=== PATIENT | male | born 1990 | race Caucasian/White ===

== ENCOUNTER 2020-06-29 09:51 | Emergency (ER) | payer BC ==
[~2020-06-29] VITALS: Ht 175.3 cm; Wt 65.8 kg
[2020-06-29 09:54] VITALS: BP 129/70
[2020-06-29] MEDS ORDERED: KETOROLAC 60 MG/2 ML VIAL IM ONE (10:05)
[2020-06-29] MEDS ORDERED: LORazepam 1 MG TAB PO ONE (10:15)
--- NOTE | 2020-06-29 10:20 | NUR ---
PT REFUSED MEDICATION BECAUSE HE DOES NOT LIKE NEEDLES, ERMD MADE AWARE
--- NOTE | 2020-06-29 10:20 | NUR ---
30 YEAR OLD MALE COMPLAINS OF SPASMS PAIN IN LOWER BACK THAT RADIATES TO LEFT LEG AFTER INJURY OCCURED 13 YEARS AGO. PT STATES CHRONIC PAIN BUT WORSE FOR THE PAST 3 DAYS WHERE HE NOW HAS DIFFICULTY WITH DAILY ACTIVITIES DUE TO PAIN. PT AOX4, BREATHING EVEN AND UNLABORED, SKIN WARM AND DRY. BED IN LOWEST POSITION, LOCKED, BED RAIL UPX1. PMH - SPINAL INJURY ALLERGIES - NKA
[2020-06-29] MEDS ORDERED: IBUPROFEN 800 MG TAB PO ONE (10:25)
--- NOTE | 2020-06-29 10:40 | NUR ---
Note [email or web address] in EDM - 06/29/20 at 1040 by [email or web address] 30 YEAR OLD MALE COMPLAINS OF SPASMS PAIN IN LOWER BACK THAT RADIATES TO LEFT LEG AFTER INJURY OCCURED 13 YEARS AGO. PT STATES CHRONIC PAIN BUT WORSE FOR THE PAST 3 DAYS WHERE HE NOW HAS DIFFICULTY WITH DAILY ACTIVITIES DUE TO PAIN. PT AOX4, BREATHING EVEN AND UNLABORED, SKIN WARM AND DRY. BED IN LOWEST POSITION, LOCKED, BED RAIL UPX1. PMH - SPINAL INJURY ALLERGIES - NKA
[2020-06-29 11:35] VITALS: BP 120/67
--- NOTE | 2020-06-29 11:35 | NUR ---
Patient discharged with v/s stable. Written and verbal after care instructions about chronic back pain given and explained. Patient alert, oriented and verbalized understanding of instructions. Ambulatory with steady gait. All questions addressed prior to discharge. ID band removed. Patient advised to follow up with PMD. Rx of ativan given. Patient educated on indication of medication including possible reaction and side effects. Opportunity to ask questions provided and answered.
== END 2020-06-29 11:35 | disposition home or self-care (01) ==
LOC: MED 09:51
DX: G89.29 Other chronic pain (principal); M54.5 Low back pain; F12.10 Cannabis abuse, uncomplicated
CPT/HCPCS: 99283; J1885

== ENCOUNTER 2020-09-14 05:41 | Emergency (ER) | payer BC ==
[~2020-09-14] VITALS: Ht 175.3 cm; Wt 70.3 kg
[2020-09-14 05:45] VITALS: BP 131/77
--- NOTE | 2020-09-14 05:48 | NUR ---
TO LOBBY A/W BED VIA W/C
--- NOTE | 2020-09-14 06:35 | NUR ---
PT AMBULATED TO BED #5
--- NOTE | 2020-09-14 06:48 | NUR ---
LAB AT BEDSIDE.
--- NOTE | 2020-09-14 06:50 | NUR ---
30 YO MALE PRESENTED TO ED C/O BACK PAIN AND ANXIETY AFTER TAKEN NORCO FOR PAIN AND SMOKING WEED. PT DESCRIBES PAIN SHOCK LIKE DOWN HIS LEGS . PT HAD BACK SURGERY X 3 DAYS AGO. PT DENIES N/V/D/FEVER/ CHILLS. A/O X 4. SKIN, PINK WARM AND DRY. PT IS AMBULATORY. RR EVEN AND UNLABORED. PT PLACED IN GOWN , RESTING IN BED, LOCKED AND IN LOWEST POSITION, HOB ELEVATED SIDE RAIL X1. NO ACUTE DISTRESS NOTED AT THIS TIME. PMH: BACK SURGERY TREY
--- NOTE | 2020-09-14 06:58 | NUR ---
XRAY AT BEDSIDE.
[2020-09-14 06:59] LABS: BASOPHILS % (AUTO) 0.3 % (0.0-2.0); EOSINOPHILS # (AUTO) 0.1 K/uL (0-0.4); EOSINOPHILS % (AUTO) 0.8 % (0.0-4.0); HEMATOCRIT 38.1 % (36-52); LYMPHOCYTES # (AUTO) 1.1 K/uL (2.0-11.5); LYMPHOCYTES % (AUTO) 15.9 % (20.5-51.1); MEAN CORPUSCULAR HEMOGLOBIN 30 pg (27-31); MEAN CORPUSCULAR HGB CONC 34 g/dL (33-37); MEAN CORPUSCULAR VOLUME 86.4 fL (80-94); MONOCYTES # (AUTO) 0.8 K/uL (0.8-1.0); MONOCYTES % (AUTO) 10.7 % (1.7-9.3); NEUTROPHILS # (AUTO) 5.2 K/uL (1.8-7.7); NEUTROPHILS % (AUTO) 72.3 % (42.2-75.2); PLATELET COUNT (AUTO) 256 K/uL (140-450); RED BLOOD CELL COUNT(AUTO) 4.41 MIL/uL (4.20-6.10); RED CELL DISTRIBUTION WIDTH 12.7 % (11.6-13.7); WHITE BLOOD COUNT (AUTO) 7.2 K/uL (4.8-10.8)
--- NOTE | 2020-09-14 07:00 | NUR ---
PT PROVIDED W/ URINE SPECIMEN CUP FOR ENCOURAGEMENT OF URINE SAMPLE.
[2020-09-14 07:03] VITALS: BP 135/79
--- NOTE | 2020-09-14 07:03 | NUR ---
PT AMBULATED TO RESTROOM W/ STEADY GAIT.
--- NOTE | 2020-09-14 07:14 | NUR ---
REPORT GIVEN TO MAHESH REHMAN FOR TRANSFER OF CARE.
[2020-09-14 07:17] LABS: ACETAMINOPHEN < 0.5 ug/ml (10-30); ALBUMIN 4.4 g/dL (3.4-5.0); ANION GAP 13.2 (8-16); ASPARTATE AMINOTRANSFERASE 34 U/L (15-37); CARBON DIOXIDE 28.8 mmol/L (21-32); CHLORIDE 102 mmol/L (98-107); CREATININE 0.9 mg/dL (0.6-1.3); GFR ARICAN-AMERICAN 126 mL/min (>90); GLUCOSE 117 mg/dL (74-106); SALICYLATE < 2.8 mg/dL (2.8-20.0); SODIUM SERUM 141 mmol/L (136-145); UREA NITROGEN, BLOOD 10 mg/dL (7-18)
--- NOTE | 2020-09-14 07:21 | NUR ---
TRANSFER OF CARE AT THIS TIME FROM MAHESH LOUIS
--- NOTE | 2020-09-14 07:22 | NUR ---
PTS URINE COLLECTED AND TAKEN TO LAB.
--- NOTE | 2020-09-14 07:26 | NUR ---
DR. GUEVARA AT BEDSIDE EVALUATING PT.
[2020-09-14] MEDS ORDERED: ONDANSETRON 4 MG ODT PO ONE (07:35)
[2020-09-14 09:39] LABS: APPEARANCE,URINE HAZY (CLEAR); BILIRUBIN,URINE NEGATIVE (NEGATIVE); BLOOD, URINE NEGATIVE (NEGATIVE); COLOR,URINE DARK YELLOW (YELLOW); LEUKOCYTE ESTERASE ,URINE NEGATIVE (NEGATIVE); NITRITE, URINE NEGATIVE (NEGATIVE); UGLUCOSE NEGATIVE (NEGATIVE)
[2020-09-14 10:27] LABS: BARBITURATE, URINE NEGATIVE ng/ml (NEG <=200); BENZODIAZEPINE, URINE NEGATIVE ng/mL (NEG <=200); CANNABINOID, URINE POSITIVE ng/mL (NEG <=50); COCAINE, URINE NEGATIVE ng/mL (NEG <=300); PHENCYCLIDINE SCREEN,URINE NEGATIVE ng/mL (NEG <=25)
[2020-09-14 10:28] LABS: OPIATE, URINE POSITIVE ng/mL (NEG <=2000)
== END 2020-09-14 08:11 | disposition home or self-care (01) ==
LOC: MED 05:41
DX: F41.9 Anxiety disorder, unspecified (principal); R11.0 Nausea; F12.90 Cannabis use, unspecified, uncomplicated; Z98.890 Other specified postprocedural states
CPT/HCPCS: 36415; 71045; 80053; 80305; 81003; 85025; 99284; G0480; Q0162

== ENCOUNTER 2020-09-24 09:19 | Outpatient (CLI) | payer BC | END 2020-09-24 22:20 | disposition home or self-care (01) | LOC: MRD 09:19 | DX: M54.5 Low back pain (principal) | CPT/HCPCS: 72110 ==